=== PATIENT | female | born 1970 | race African-American/Black ===

== ENCOUNTER 2018-04-26 11:10 | Inpatient (IN) | payer MEDICAID ==
[~2018-04-26] VITALS: Ht 154.9 cm; Wt 71.2 kg
[2018-04-26] MEDS ORDERED: ALBUTEROL (0.083%) 2.5MG/3ML NEB HHN STA ×2 (11:40→12:33)
[2018-04-26 12:30] LABS: BASOPHILS % 0.6 % (0.0-2.0); EOSINOPHILS % 2.3 % (0.0-5.0); HEMATOCRIT. 33.2 % (36.0-48.0); HEMOGLOBIN. 10.2 g/dL (12.0-16.0); LYMPHOCYTES % 19.4 % (20.0-50.0); MEAN CORPUSCULAR HEMOGLOBIN 21.5 pg (28.0-32.0); MEAN CORPUSCULAR VOLUME 69.7 fL (81.0-99.0); MEAN PLATELET VOLUME 9.2 fl (7.4-10.4); NEUTROPHILS % 68.7 % (40.0-76.0); PLATELET 187 x1000/uL (130-400); RED BLOOD CELL COUNT 4.76 mill/uL (4.2-5.4); RED CELL DISTRIBUTION WIDTH 21.5 % (11.6-14.6)
[2018-04-26] MEDS ORDERED: FUROSEMIDE 40MG/4ML VIAL IVP ONE (12:30)
[2018-04-26 12:34] LABS: CHLORIDE 111 mEq/L (98-107)
[2018-04-26 12:57] LABS: PLATELET ESTIMATE NORMAL
[2018-04-26] MEDS ORDERED: ENALAPRIL 2.5MG/2ML VIAL 2ML IV ONE (13:30)
[2018-04-26 14:35] LABS: CLARITY URINE CLOUDY (CLEAR); COLOR URINE YELLOW (YELLOW); KETONES URINE NEGATIVE (NEGATIVE); LEUKOCYTE ESTERASE URINE TRACE (NEGATIVE); NITRITE URINE NEGATIVE (NEGATIVE); OCCULT BLOOD URINE NEGATIVE (NEGATIVE); PH URINE 6.5 (4.5-8.0); PROTEIN URINE 2+ (NEGATIVE); SPECIFIC GRAVITY URINE 1.012 (1.005-1.030)
[2018-04-26 14:53] LABS: BG BASE EXCESS -1.1 mmol/L (-2.0-2.0); BG CARBOXYHEMOGLOBIN 0.9 % (0.5-1.5); BG DEOXYHEMOGLOBIN 3.3 % (0.0-5.0); BG FRACTION INSPIRED OXYGEN 32; BG METHEMOGLOBIN 0.3 % (0.0-1.5); BG OXYGEN SATURATION 96.7 % (92.0-98.5); BG OXYHEMOGLOBIN 95.5 % (94.0-97.0); BG PCO2 35.9 mmHg (35.0-45.0); BG PH 7.424 (7.350-7.450); BG PO2 89.4 mmHg (75.0-100.0); BG SAMPLE SITE LEFT BRACHIAL; BG VENT MODE NASAL CANNULA
[2018-04-26 15:14] LABS: *AMPHETAMINES SCREEN URINE NEGATIVE (NEGATIVE); *BARBITURATES SCREEN URINE NEGATIVE (NEGATIVE)
[2018-04-26 15:15] LABS: *BENZODIAZEPINES SCREEN URINE NEGATIVE (NEGATIVE); CANNABINOID URINE SCREEN NEGATIVE (NEGATIVE); METHADONE URINE SCREEN NEGATIVE (NEGATIVE); OPIATES URINE SCREEN NEGATIVE (NEGATIVE); PHENCYCLIDINE URINE SCREEN NEGATIVE (NEGATIVE)
[2018-04-26 15:23] LABS: *COCAINE SCREEN URINE PRESUMTIVE POSITIVE (NEGATIVE)
[2018-04-26] MEDS ORDERED: HYDRALAZINE 20MG/ML VIAL IV NR (20:30)
[2018-04-26] MEDS ORDERED: CLOP75TA16 PO (22:52)
[2018-04-26] MEDS ORDERED: FERR325T6 PO (22:52)
[2018-04-26] MEDS ORDERED: FURO-151 PO (22:52)
[2018-04-26] MEDS ORDERED: AMLO5TAB4 PO (22:52)
[2018-04-26] MEDS ORDERED: APIX5TAB PO (22:52)
[2018-04-26] MEDS ORDERED: IPRATROPIUM/ALBUTEROL 0.5-3(2.5)MG/3ML NEB HHN PRN (23:00)
[2018-04-26] MEDS ORDERED: HYDRALAZINE 20MG/ML VIAL IV PRN (23:00)
[2018-04-26 23:34] VITALS: BP 158/105
[2018-04-26] MEDS: APIXABAN 5 MG TABLET PO SCH (23:43)
[2018-04-27] VITALS (8 sets, daily range): BP systolic 137–198; BP diastolic 74–114
[2018-04-27] MEDS: IPRATROPIUM/ALBUTEROL 0.5-3(2.5)MG/3ML NEB HHN SCH ×6 (00:07→20:50)
[2018-04-27] MEDS ORDERED: FUROSEMIDE 40MG/4ML VIAL IVP SCH ×2 (02:00→09:00)
[2018-04-27] MEDS: METHYLPREDNISOLONE SOD SUCC 40 MG/ML VIAL IV SCH ×3 (02:09→18:38)
[2018-04-27 07:18] LABS: HEMATOCRIT. 31.4 % (36.0-48.0); HEMOGLOBIN. 9.9 g/dL (12.0-16.0); MEAN CORPUSCULAR HEMOGLOBIN 21.6 pg (28.0-32.0); MEAN CORPUSCULAR VOLUME 68.8 fL (81.0-99.0); MEAN PLATELET VOLUME 8.7 fl (7.4-10.4); PLATELET 173 x1000/uL (130-400); RED BLOOD CELL COUNT 4.57 mill/uL (4.2-5.4); RED CELL DISTRIBUTION WIDTH 21.7 % (11.6-14.6)
[2018-04-27] MEDS: AMLODIPINE 5MG TABLET PO SCH ×2 (08:51→20:31)
[2018-04-27] MEDS: FERROUS SULFATE 325MG TABLET PO SCH (08:52)
[2018-04-27] MEDS: APIXABAN 5 MG TABLET PO SCH ×2 (08:52→16:03)
[2018-04-27] MEDS ORDERED: MEDICATION NOT ON FORMULARY EA (Apixaban (Eliquis) 5 MG) PO SCH (09:00)
[2018-04-27] MEDS ORDERED: MEDICATION NOT ON FORMULARY EA (Ferrous Sulfate 325 MG) PO SCH (09:00)
[2018-04-27] MEDS ORDERED: MEDICATION NOT ON FORMULARY EA (Amlodipine Besylate (Norvasc) 5 MG) PO SCH (09:00)
[2018-04-27] MEDS: CLONIDINE 0.1MG TABLET PO PRN (09:08)
[2018-04-27] MEDS: ONDANSETRON HCL 4MG/2ML INJ IV PRN (12:40)
[2018-04-27] MEDS: ISOSORB DINIT/HYDRALAZINE HCL 20/37.5MG TABLET PO SCH ×2 (15:58→20:31)
[2018-04-27] MEDS: FUROSEMIDE 40MG/4ML VIAL IVP SCH (16:01)
[2018-04-27] MEDS: LOSARTAN POTASSIUM 25 MG TABLET PO SCH (16:03)
[2018-04-27] MEDS: DIPHENHYDRAMINE 50MG CAPSULE PO SCH (20:31)
[2018-04-27] MEDS: GUAIFENESIN/CODEINE 200-20MG/10ML UDC PO PRN (20:31)
[2018-04-27 21:09] LABS: HEPATITIS B SURFACE ANTIGEN NEGATIVE
[2018-04-27] MEDS: ACETAMINOPHEN 325MG TABLET PO PRN (21:14)
[2018-04-27 21:26] LABS: PLATELET ESTIMATE NORMAL
[2018-04-27 21:38] LABS: HEPATITIS A AB IGM NEGATIVE (NEGATIVE)
[2018-04-28] MEDS: IPRATROPIUM/ALBUTEROL 0.5-3(2.5)MG/3ML NEB HHN SCH ×7 (00:05→23:58)
[2018-04-28] MEDS: GUAIFENESIN/CODEINE 200-20MG/10ML UDC PO PRN (01:21)
[2018-04-28] MEDS: METHYLPREDNISOLONE SOD SUCC 40 MG/ML VIAL IV SCH ×3 (01:22→17:10)
[2018-04-28] MEDS: ISOSORB DINIT/HYDRALAZINE HCL 20/37.5MG TABLET PO SCH (05:09)
[2018-04-28 07:23] LABS: HEMATOCRIT. 29.6 % (36.0-48.0); HEMOGLOBIN. 9.2 g/dL (12.0-16.0); MEAN CORPUSCULAR HEMOGLOBIN 21.4 pg (28.0-32.0); MEAN CORPUSCULAR VOLUME 68.8 fL (81.0-99.0); MEAN PLATELET VOLUME 8.7 fl (7.4-10.4); PLATELET 166 x1000/uL (130-400); RED BLOOD CELL COUNT 4.31 mill/uL (4.2-5.4); RED CELL DISTRIBUTION WIDTH 22.2 % (11.6-14.6)
[2018-04-28 08:00] VITALS: BP 125/90
[2018-04-28 08:48] LABS: PHOSPHORUS 3.4 mg/dL (2.5-4.9)
[2018-04-28] MEDS: APIXABAN 5 MG TABLET PO SCH ×2 (08:53→17:10)
[2018-04-28] MEDS: LOSARTAN POTASSIUM 25 MG TABLET PO SCH (08:53)
[2018-04-28] MEDS: FERROUS SULFATE 325MG TABLET PO SCH (08:53)
[2018-04-28] MEDS: AMLODIPINE 5MG TABLET PO SCH ×2 (08:54→21:28)
[2018-04-28] MEDS: FUROSEMIDE 40MG/4ML VIAL IVP SCH ×2 (08:54→17:10)
[2018-04-28 12:00] VITALS: BP 142/100
[2018-04-28 14:31] LABS: PLATELET ESTIMATE NORMAL
[2018-04-28 16:00] VITALS: BP 129/76
[2018-04-28 20:00] VITALS: BP 153/94
[2018-04-28] MEDS: DIPHENHYDRAMINE 50MG CAPSULE PO SCH (21:28)
[2018-04-28] MEDS ORDERED: GUAIFENESIN/CODEINE 100-10MG/5ML UDC PO PRN (21:45)
[2018-04-28 23:48] VITALS: BP 132/92
[2018-04-29] MEDS: METHYLPREDNISOLONE SOD SUCC 40 MG/ML VIAL IV SCH ×3 (01:55→17:07)
[2018-04-29] MEDS: ONDANSETRON HCL 4MG/2ML INJ IV PRN (01:55)
[2018-04-29] MEDS: IPRATROPIUM/ALBUTEROL 0.5-3(2.5)MG/3ML NEB HHN SCH ×3 (03:41→15:56)
[2018-04-29 04:00] VITALS: BP 140/101
[2018-04-29] MEDS: ACETAMINOPHEN 325MG TABLET PO PRN (05:16)
[2018-04-29] MEDS: CLONIDINE 0.1MG TABLET PO PRN (05:25)
[2018-04-29 07:35] LABS: HEMATOCRIT. 32.3 % (36.0-48.0); HEMOGLOBIN. 9.7 g/dL (12.0-16.0); MEAN CORPUSCULAR VOLUME 69.9 fL (81.0-99.0); MEAN PLATELET VOLUME 9.2 fl (7.4-10.4); PLATELET 184 x1000/uL (130-400); RED BLOOD CELL COUNT 4.62 mill/uL (4.2-5.4); RED CELL DISTRIBUTION WIDTH 22.3 % (11.6-14.6)
[2018-04-29] MEDS: FERROUS SULFATE 325MG TABLET PO SCH (09:02)
[2018-04-29] MEDS: APIXABAN 5 MG TABLET PO SCH ×2 (09:02→17:07)
[2018-04-29] MEDS: AMLODIPINE 5MG TABLET PO SCH (09:02)
[2018-04-29] MEDS: FUROSEMIDE 40MG/4ML VIAL IVP SCH (09:03)
[2018-04-29 10:38] LABS: PLATELET ESTIMATE NORMAL
[2018-04-29 11:25] LABS: PHOSPHORUS 3.7 mg/dL (2.5-4.9)
[2018-04-29 12:00] VITALS: BP 118/79
[2018-04-29 16:00] VITALS: BP 127/91
[2018-04-29] MEDS ORDERED: FUROSEMIDE 20MG/2ML VIAL IVP SCH (17:00)
[2018-04-29 19:34] VITALS: BP 120/88
== END 2018-04-29 20:20 | disposition home or self-care (01) | DRG 816 ==
LOC: ER 11:21 → EDBEDREQ 13:48 → EDBEDREQTM 13:48 → CANRESERV 15:25 → ENRESERV 15:25 → 5EST 16:53 → EDBEDREQ 16:57 → EDBEDREQTM 16:57 → EDBEDREQSVC 16:57 → ENRESERV 20:18 → 5EST 22:45 → 7WST 04-27 13:10
PROVIDERS: ADMIT Internal Medicine; ATTEND Internal Medicine
PROC: 5A09357 Assistance with Respiratory Ventilation, Less than 24 Consecutive Hours, Continuous Positive Airway Pressure (ICD-10-PCS; principal; 2018-04-27)
DX: T40.5X1A Poisoning by cocaine, accidental (unintentional), initial encounter (principal); J96.91 Respiratory failure, unspecified with hypoxia; I50.23 Acute on chronic systolic (congestive) heart failure; E43 Unspecified severe protein-calorie malnutrition; N17.9 Acute kidney failure, unspecified; I27.20 Pulmonary hypertension, unspecified; J68.0 Bronchitis and pneumonitis due to chemicals, gases, fumes and vapors; D50.9 Iron deficiency anemia, unspecified; F17.210 Nicotine dependence, cigarettes, uncomplicated; R74.0 Nonspecific elevation of levels of transaminase and lactic acid dehydrogenase [LDH]; F14.129 Cocaine abuse with intoxication, unspecified; I42.9 Cardiomyopathy, unspecified; I34.0 Nonrheumatic mitral (valve) insufficiency; F19.10 Other psychoactive substance abuse, uncomplicated; N18.2 Chronic kidney disease, stage 2 (mild); I13.0 Hypertensive heart and chronic kidney disease with heart failure and stage 1 through stage 4 chronic kidney disease, or unspecified chronic kidney disease; Y92.89 Other specified places as the place of occurrence of the external cause; Z59.0 Homelessness; Z86.73 Personal history of transient ischemic attack (TIA), and cerebral infarction without residual deficits; Z82.49 Family history of ischemic heart disease and other diseases of the circulatory system; Z86.718 Personal history of other venous thrombosis and embolism; Z91.14 Patient's other noncompliance with medication regimen; Z68.29 Body mass index [BMI] 29.0-29.9, adult; Z88.0 Allergy status to penicillin
CPT/HCPCS: 36415; 36600; 71045; 76770; 80048; 80305; 82375; 82550; 82553; 82805; 83605; 83735; 83880; 84100; 84484; 86705; 86709; 86803; 87340; 87804; 93005; 93306; 94640; 94660; 96374; 99285; J0360; J1940; J2405; J2920; J3490; J7611; J7620; Q0163

== ENCOUNTER 2018-06-21 09:17 | Inpatient (IN) | payer MEDICAID ==
[~2018-06-21] VITALS: Ht 162.6 cm; Wt 68.5 kg
[~2018-06-21 09:17] MED LIST: AMLO5TAB4 PO; CLOP75TA16 PO; FERR325T6 PO
[2018-06-21 10:50] LABS: BASOPHILS % 0.9 % (0.0-2.0); EOSINOPHILS % 1.2 % (0.0-5.0); HEMATOCRIT. 36.6 % (36.0-48.0); HEMOGLOBIN. 11.2 g/dL (12.0-16.0); LYMPHOCYTES % 15.2 % (20.0-50.0); MEAN CORPUSCULAR HEMOGLOBIN 22.8 pg (28.0-32.0); MEAN CORPUSCULAR VOLUME 74.2 fL (81.0-99.0); MEAN PLATELET VOLUME 8.4 fl (7.4-10.4); MONOCYTES % 4.9 % (2.0-8.0); NEUTROPHILS % 77.8 % (40.0-76.0); PLATELET 261 x1000/uL (130-400); RED BLOOD CELL COUNT 4.94 mill/uL (4.2-5.4); RED CELL DISTRIBUTION WIDTH 25.8 % (11.6-14.6)
[2018-06-21 10:55] LABS: CHLORIDE 107 mEq/L (98-107)
[2018-06-21 11:23] LABS: PLATELET ESTIMATE NORMAL
[2018-06-21] MEDS ORDERED: IPRATROPIUM BROMIDE (0.02%) 0.5MG/2.5ML NEB HHN STA (13:17)
[2018-06-21] MEDS ORDERED: ALBUTEROL (0.083%) 2.5MG/3ML NEB HHN STA (13:17)
[2018-06-21] MEDS ORDERED: HYDRALAZINE 20MG/ML VIAL IV ONE (13:30)
[2018-06-21] MEDS: FUROSEMIDE 40MG/4ML VIAL IV ONE ×2 (13:37→13:44)
[2018-06-21] MEDS ORDERED: CLONIDINE 0.1MG TABLET PO PRN (14:45)
[2018-06-21 16:00] VITALS: BP 143/110
[2018-06-21] MEDS ORDERED: DIPH25CA83 MT (16:24)
[2018-06-21 16:45] VITALS: BP 143/110
[2018-06-21 17:25] VITALS: BP 143/110
[2018-06-21] MEDS ORDERED: ZOLPIDEM TARTRATE 5MG TABLET PO PRN (18:45)
[2018-06-21] MEDS ORDERED: DIPHENHYDRAMINE 50MG CAPSULE PO PRN (18:45)
[2018-06-21] MEDS ORDERED: IPRATROPIUM/ALBUTEROL 0.5-3(2.5)MG/3ML NEB HHN PRN (19:30)
[2018-06-21 20:00] VITALS: BP 142/106
[2018-06-21] MEDS: CARVEDILOL 3.125 MG TABLET PO SCH (22:00)
[2018-06-21] MEDS: GUAIFENESIN 200MG/10ML SUGAR FREE UDC PO PRN (22:00)
[2018-06-21] MEDS: FUROSEMIDE 40MG/4ML VIAL IVP SCH (22:01)
[2018-06-21] MEDS: LEVOFLOXACIN 500MG TABLET PO NR (22:01)
[2018-06-21] MEDS: ENOXAPARIN 40MG/0.4ML SYR SUBCUT SCH (22:02)
[2018-06-22] VITALS: BP 131/85
[2018-06-22] MEDS: GUAIFENESIN 200MG/10ML SUGAR FREE UDC PO PRN ×2 (02:43→20:38)
[2018-06-22 04:00] VITALS: BP 123/83
[2018-06-22 06:44] LABS: BASOPHILS % 0.5 % (0.0-2.0); EOSINOPHILS % 1.9 % (0.0-5.0); HEMATOCRIT. 34.5 % (36.0-48.0); HEMOGLOBIN. 10.6 g/dL (12.0-16.0); LYMPHOCYTES % 11.5 % (20.0-50.0); MEAN CORPUSCULAR VOLUME 74.7 fL (81.0-99.0); MEAN PLATELET VOLUME 8.6 fl (7.4-10.4); MONOCYTES % 5.1 % (2.0-8.0); PLATELET 239 x1000/uL (130-400); RED BLOOD CELL COUNT 4.61 mill/uL (4.2-5.4); RED CELL DISTRIBUTION WIDTH 25.9 % (11.6-14.6)
[2018-06-22 08:00] VITALS: BP 159/92
[2018-06-22] MEDS: CLOPIDOGREL 75MG TABLET PO SCH (09:59)
[2018-06-22] MEDS: FUROSEMIDE 40MG/4ML VIAL IVP SCH ×2 (09:59→20:33)
[2018-06-22] MEDS: CARVEDILOL 3.125 MG TABLET PO SCH ×2 (10:00→20:34)
[2018-06-22] MEDS: LISINOPRIL 20MG TABLET PO SCH (10:00)
[2018-06-22] MEDS: AMLODIPINE 10MG TABLET PO SCH (10:01)
[2018-06-22] MEDS: ASPIRIN 81MG TABLET PO SCH (10:01)
[2018-06-22] MEDS: LEVOFLOXACIN 250MG TABLET PO SCH (10:27)
[2018-06-22 12:00] VITALS: BP 142/88
[2018-06-22 16:00] VITALS: BP 138/82
[2018-06-22] MEDS: NICOTINE 7MG PATCH TD SCH (17:36)
[2018-06-22 20:00] VITALS: BP 127/91
[2018-06-22] MEDS: CLONIDINE 0.1MG TABLET PO SCH (20:34)
[2018-06-22] MEDS: ENOXAPARIN 40MG/0.4ML SYR SUBCUT SCH (20:35)
[2018-06-22] MEDS: LEVOFLOXACIN 500MG TABLET PO NR (20:40)
[2018-06-23] VITALS: BP 123/72
[2018-06-23 04:00] VITALS: BP_SYST 108; BP_SYST 144; BP_DIAS 73; BP_DIAS 83
[2018-06-23] MEDS: CLONIDINE 0.1MG TABLET PO SCH (06:00)
[2018-06-23] MEDS: FUROSEMIDE 40MG/4ML VIAL IVP SCH (06:09)
[2018-06-23 08:00] VITALS: BP 141/96
[2018-06-23 08:36] LABS: BASOPHILS % 0.7 % (0.0-2.0); EOSINOPHILS % 3.2 % (0.0-5.0); HEMATOCRIT. 37.4 % (36.0-48.0); HEMOGLOBIN. 11.4 g/dL (12.0-16.0); LYMPHOCYTES % 17.8 % (20.0-50.0); MEAN CORPUSCULAR HEMOGLOBIN 22.8 pg (28.0-32.0); MEAN CORPUSCULAR VOLUME 74.8 fL (81.0-99.0); MEAN PLATELET VOLUME 8.8 fl (7.4-10.4); MONOCYTES % 7.9 % (2.0-8.0); NEUTROPHILS % 70.4 % (40.0-76.0); PLATELET 231 x1000/uL (130-400); RED BLOOD CELL COUNT 5.01 mill/uL (4.2-5.4); RED CELL DISTRIBUTION WIDTH 26.6 % (11.6-14.6)
[2018-06-23] MEDS: ASPIRIN 81MG TABLET PO SCH (08:51)
[2018-06-23] MEDS: CARVEDILOL 3.125 MG TABLET PO SCH (08:51)
[2018-06-23] MEDS: CLOPIDOGREL 75MG TABLET PO SCH (08:51)
[2018-06-23] MEDS: NICOTINE 7MG PATCH TD SCH (08:52)
[2018-06-23] MEDS: AMLODIPINE 10MG TABLET PO SCH (08:52)
[2018-06-23] MEDS: LISINOPRIL 20MG TABLET PO SCH (08:52)
[2018-06-23 12:00] VITALS: BP 127/88
[2018-06-23] MEDS: LEVOFLOXACIN 250MG TABLET PO SCH (13:15)
[2018-06-23 15:23] LABS: *AMPHETAMINES SCREEN URINE NEGATIVE (NEGATIVE); *BARBITURATES SCREEN URINE NEGATIVE (NEGATIVE); *BENZODIAZEPINES SCREEN URINE NEGATIVE (NEGATIVE); METHADONE URINE SCREEN NEGATIVE (NEGATIVE); OPIATES URINE SCREEN NEGATIVE (NEGATIVE)
[2018-06-23 15:24] LABS: CANNABINOID URINE SCREEN NEGATIVE (NEGATIVE); PHENCYCLIDINE URINE SCREEN NEGATIVE (NEGATIVE)
[2018-06-23 15:53] LABS: *COCAINE SCREEN URINE PRESUMTIVE POSITIVE (NEGATIVE)
== END 2018-06-23 13:58 | disposition home or self-care (01) | DRG 194 ==
LOC: ER 09:17 → 7WST 13:35 → ENRESERV 14:01
PROVIDERS: ADMIT Internal Medicine; ATTEND Internal Medicine
DX: I13.0 Hypertensive heart and chronic kidney disease with heart failure and stage 1 through stage 4 chronic kidney disease, or unspecified chronic kidney disease (principal); I27.20 Pulmonary hypertension, unspecified; E44.0 Moderate protein-calorie malnutrition; I42.9 Cardiomyopathy, unspecified; I08.1 Rheumatic disorders of both mitral and tricuspid valves; I50.43 Acute on chronic combined systolic (congestive) and diastolic (congestive) heart failure; N18.3 Chronic kidney disease, stage 3 (moderate); F14.90 Cocaine use, unspecified, uncomplicated; F17.210 Nicotine dependence, cigarettes, uncomplicated; J45.909 Unspecified asthma, uncomplicated; I25.10 Atherosclerotic heart disease of native coronary artery without angina pectoris; J44.9 Chronic obstructive pulmonary disease, unspecified; Z59.0 Homelessness; Z86.73 Personal history of transient ischemic attack (TIA), and cerebral infarction without residual deficits; Z91.19 Patient's noncompliance with other medical treatment and regimen; Z95.5 Presence of coronary angioplasty implant and graft; Z68.29 Body mass index [BMI] 29.0-29.9, adult; Z71.6 Tobacco abuse counseling
CPT/HCPCS: 36415; 71045; 80048; 80305; 83735; 83880; 84484; 93005; 93970; 94640; 96374; 96375; 99285; J0360; J1650; J1940; J7611

== ENCOUNTER 2018-11-21 11:33 | Inpatient (IN) | payer MEDICAID ==
[~2018-11-21] VITALS: Ht 162.6 cm; Wt 57.6 kg
[~2018-11-21 11:33] MED LIST changes: -CLOP75TA16 PO; +CLOP75TA4 PO; +DIPH25CA83 MT
[2018-11-21] MEDS ORDERED: PREDNISONE 20MG TABLET PO STA (11:45)
[2018-11-21] MEDS ORDERED: ALBUTEROL (0.083%) 2.5MG/3ML NEB HHN STA (11:45)
[2018-11-21] MEDS ORDERED: IPRATROPIUM BROMIDE (0.02%) 0.5MG/2.5ML NEB HHN STA (11:45)
[2018-11-21 12:21] LABS: BASOPHILS % 0.7 % (0.0-2.0); EOSINOPHILS % 0.9 % (0.0-5.0); HEMOGLOBIN. 11.6 g/dL (12.0-16.0); LYMPHOCYTES % 15.1 % (20.0-50.0); MEAN CORPUSCULAR HEMOGLOBIN 24.9 pg (28.0-32.0); MEAN CORPUSCULAR VOLUME 79.5 fL (81.0-99.0); MEAN PLATELET VOLUME 8.6 fl (7.4-10.4); MONOCYTES % 4.5 % (2.0-8.0); NEUTROPHILS % 78.8 % (40.0-76.0); PLATELET 267 x1000/uL (130-400); RED BLOOD CELL COUNT 4.66 mill/uL (4.2-5.4); RED CELL DISTRIBUTION WIDTH 18.3 % (11.6-14.6)
[2018-11-21 12:26] LABS: CHLORIDE 111 mEq/L (98-107)
[2018-11-21] MEDS ORDERED: ENALAPRIL 2.5MG/2ML VIAL 2ML IV ONE (13:00)
[2018-11-21] MEDS ORDERED: FUROSEMIDE 40MG/4ML VIAL IVP ONE (13:00)
[2018-11-21 16:00] VITALS: BP 160/124
[2018-11-21 16:20] VITALS: BP 185/75
[2018-11-21] MEDS ORDERED: ENOXAPARIN 40MG/0.4ML SYR SUBCUT SCH (16:45)
[2018-11-21] MEDS ORDERED: DOCUSATE SODIUM 100MG CAPSULE PO PRN (16:45)
[2018-11-21] MEDS ORDERED: MAGNESIUM/ALUMINUM HYDROXIDE/SIMETHICONE 30ML UDC PO PRN (16:45)
[2018-11-21] MEDS ORDERED: HYDRALAZINE 20MG/ML VIAL IV PRN (16:45)
[2018-11-21] MEDS ORDERED: NA PHOS,M-B/NA PHOS,DI-BA ENEMA 118ML PR PRN (16:45)
[2018-11-21] MEDS ORDERED: HYDROCODONE/ACETAMINOPHEN 10/325MG TABLET PO PRN (16:45)
[2018-11-21] MEDS ORDERED: ACETAMINOPHEN 325MG TABLET PO PRN (16:45)
[2018-11-21] MEDS ORDERED: DIPHENHYDRAMINE 50MG/ML VIAL IV PRN (16:45)
[2018-11-21] MEDS ORDERED: IPRATROPIUM/ALBUTEROL 0.5-3(2.5)MG/3ML NEB INH PRN (16:45)
[2018-11-21] MEDS ORDERED: HYDROMORPHONE HCL/PF 2MG/ML CPJ IV PRN (16:45)
[2018-11-21] MEDS: CLOPIDOGREL 75MG TABLET PO SCH (17:29)
[2018-11-21] MEDS: METHYLPREDNISOLONE SOD SUCC 125 MG/2 ML VIAL IV SCH ×2 (17:29→23:48)
[2018-11-21] MEDS: GUAIFENESIN 200MG/10ML SUGAR FREE UDC PO PRN (17:45)
[2018-11-21 19:36] LABS: *AMPHETAMINES SCREEN URINE NEGATIVE (NEGATIVE); *BARBITURATES SCREEN URINE NEGATIVE (NEGATIVE); *BENZODIAZEPINES SCREEN URINE NEGATIVE (NEGATIVE); CANNABINOID URINE SCREEN NEGATIVE (NEGATIVE); METHADONE URINE SCREEN NEGATIVE (NEGATIVE); OPIATES URINE SCREEN NEGATIVE (NEGATIVE)
[2018-11-21 19:37] LABS: PHENCYCLIDINE URINE SCREEN NEGATIVE (NEGATIVE)
[2018-11-21 19:40] LABS: *COCAINE SCREEN URINE PRESUMTIVE POSITIVE (NEGATIVE)
[2018-11-21 20:00] VITALS: BP 150/90
[2018-11-21] MEDS: IPRATROPIUM/ALBUTEROL 0.5-3(2.5)MG/3ML NEB INH SCH (20:33)
[2018-11-21] MEDS: SODIUM CHLORIDE 0.9% INJ 3ML FLUSH IVF SCH (21:53)
[2018-11-21 22:00] VITALS: BP 150/87
[2018-11-21] MEDS: LORAZEPAM 2MG/ML CPJ IV PRN (22:06)
[2018-11-21] MEDS: ONDANSETRON HCL 4MG/2ML INJ IV PRN (23:31)
[2018-11-22] VITALS (9 sets, daily range): BP systolic 146–180; BP diastolic 89–140
[2018-11-22 00:48] LABS: CREATINE KINASE MB FRACTION 5.4 ng/mL (0.5-3.6)
[2018-11-22] MEDS: IPRATROPIUM/ALBUTEROL 0.5-3(2.5)MG/3ML NEB INH SCH ×7 (01:20→23:35)
[2018-11-22] MEDS: CLONIDINE 0.1MG TABLET PO PRN ×3 (02:13→21:11)
[2018-11-22] MEDS: METHYLPREDNISOLONE SOD SUCC 125 MG/2 ML VIAL IV SCH ×3 (05:54→17:42)
[2018-11-22 06:57] LABS: CHLORIDE 105 mEq/L (98-107)
[2018-11-22 07:10] LABS: LDL CHOLESTEROL 87 mg/dL (5-100)
[2018-11-22 07:11] LABS: CREATINE KINASE 120 IU/L (26-192); HEMATOCRIT. 32.5 % (36.0-48.0); HEMOGLOBIN. 10.5 g/dL (12.0-16.0); MEAN CORPUSCULAR HEMOGLOBIN 25.3 pg (28.0-32.0); MEAN CORPUSCULAR VOLUME 78.2 fL (81.0-99.0); MEAN PLATELET VOLUME 8.8 fl (7.4-10.4); PLATELET 239 x1000/uL (130-400); RED BLOOD CELL COUNT 4.15 mill/uL (4.2-5.4); RED CELL DISTRIBUTION WIDTH 18.1 % (11.6-14.6)
[2018-11-22 07:12] LABS: HDL CHOLESTEROL 30 mg/dL (40-59); T4 FREE 1.13 ng/dL (0.76-1.46)
[2018-11-22] MEDS ORDERED: ASPIRIN 81MG EC TABLET PO SCH (09:00)
[2018-11-22] MEDS: CLOPIDOGREL 75MG TABLET PO SCH (10:15)
[2018-11-22] MEDS: FUROSEMIDE 40MG/4ML VIAL IVP SCH (10:15)
[2018-11-22] MEDS: ENOXAPARIN 40MG/0.4ML SYR SUBCUT SCH (10:18)
[2018-11-22] MEDS: ONDANSETRON HCL 4MG/2ML INJ IV PRN (10:36)
[2018-11-22] MEDS: GUAIFENESIN 200MG/10ML SUGAR FREE UDC PO PRN ×2 (12:32→22:25)
[2018-11-22] MEDS: NICOTINE 21MG PATCH TD SCH (17:43)
[2018-11-22 18:07] LABS: CREATINE KINASE MB FRACTION 4.7 ng/mL (0.5-3.6)
[2018-11-22] MEDS: SODIUM CHLORIDE 0.9% INJ 3ML FLUSH IVF SCH (20:13)
[2018-11-22 21:01] LABS: PLATELET ESTIMATE NORMAL
[2018-11-22] MEDS: IRON SUCROSE COMPLEX 100 MG/5 ML ML IV SCH (21:08)
[2018-11-22] MEDS: LORAZEPAM 2MG/ML CPJ IV PRN (21:09)
[2018-11-23] VITALS (7 sets, daily range): BP systolic 144–157; BP diastolic 86–118
[2018-11-23] MEDS: METHYLPREDNISOLONE SOD SUCC 125 MG/2 ML VIAL IV SCH ×4 (00:16→17:47)
[2018-11-23 00:35] LABS: CREATINE KINASE MB FRACTION 4.5 ng/mL (0.5-3.6)
[2018-11-23] MEDS: IPRATROPIUM/ALBUTEROL 0.5-3(2.5)MG/3ML NEB INH SCH ×4 (03:56→21:09)
[2018-11-23] MEDS: ONDANSETRON HCL 4MG/2ML INJ IV PRN (05:37)
[2018-11-23] MEDS: SODIUM CHLORIDE 0.9% INJ 3ML FLUSH IVF SCH ×3 (05:38→20:53)
[2018-11-23 07:51] LABS: CREATINE KINASE MB FRACTION 4.3 ng/mL (0.5-3.6)
[2018-11-23] MEDS: LOSARTAN POTASSIUM 50 MG TABLET PO SCH ×2 (08:36→09:00)
[2018-11-23] MEDS: FUROSEMIDE 40MG/4ML VIAL IVP SCH (08:36)
[2018-11-23] MEDS: NICOTINE 21MG PATCH TD SCH (08:36)
[2018-11-23] MEDS: CLOPIDOGREL 75MG TABLET PO SCH (08:36)
[2018-11-23] MEDS: ENOXAPARIN 40MG/0.4ML SYR SUBCUT SCH (08:36)
[2018-11-23] MEDS: CARVEDILOL 3.125 MG TABLET PO SCH ×2 (08:36→20:53)
[2018-11-23 10:12] LABS: HEMATOCRIT. 32.1 % (36.0-48.0); HEMOGLOBIN. 10.1 g/dL (12.0-16.0); MEAN CORPUSCULAR HEMOGLOBIN 24.7 pg (28.0-32.0); MEAN CORPUSCULAR VOLUME 78.3 fL (81.0-99.0); MEAN PLATELET VOLUME 8.8 fl (7.4-10.4); PLATELET 239 x1000/uL (130-400); RED CELL DISTRIBUTION WIDTH 18.1 % (11.6-14.6)
[2018-11-23] MEDS ORDERED: LACTULOSE 20G/30ML UDC PO SCH (14:15)
[2018-11-23] MEDS: DOCUSATE SODIUM 250MG CAPSULE PO SCH (18:02)
[2018-11-23] MEDS: GUAIFENESIN 200MG/10ML SUGAR FREE UDC PO PRN (18:06)
[2018-11-23 20:46] LABS: PLATELET ESTIMATE NORMAL
[2018-11-23] MEDS: IRON SUCROSE COMPLEX 100 MG/5 ML ML IV SCH (20:53)
[2018-11-23] MEDS: LORAZEPAM 2MG/ML CPJ IV PRN (21:03)
[2018-11-24] VITALS: BP 144/98
[2018-11-24] MEDS: METHYLPREDNISOLONE SOD SUCC 125 MG/2 ML VIAL IV SCH ×3 (00:50→12:08)
[2018-11-24 04:00] VITALS: BP 145/99
[2018-11-24] MEDS: IPRATROPIUM/ALBUTEROL 0.5-3(2.5)MG/3ML NEB INH SCH ×3 (05:20→08:45)
[2018-11-24] MEDS: SODIUM CHLORIDE 0.9% INJ 3ML FLUSH IVF SCH ×2 (05:47→12:19)
[2018-11-24 07:22] LABS: HEMATOCRIT. 34.3 % (36.0-48.0); HEMOGLOBIN. 10.8 g/dL (12.0-16.0); MEAN CORPUSCULAR HEMOGLOBIN 24.9 pg (28.0-32.0); MEAN CORPUSCULAR VOLUME 79.1 fL (81.0-99.0); MEAN PLATELET VOLUME 9.1 fl (7.4-10.4); PLATELET 247 x1000/uL (130-400); RED BLOOD CELL COUNT 4.34 mill/uL (4.2-5.4); RED CELL DISTRIBUTION WIDTH 18.2 % (11.6-14.6)
[2018-11-24 08:03] VITALS: BP 114/80
[2018-11-24] MEDS: CLOPIDOGREL 75MG TABLET PO SCH (09:07)
[2018-11-24] MEDS: ENOXAPARIN 40MG/0.4ML SYR SUBCUT SCH (09:07)
[2018-11-24] MEDS: FUROSEMIDE 40MG/4ML VIAL IVP SCH (09:07)
[2018-11-24] MEDS: CARVEDILOL 3.125 MG TABLET PO SCH (09:08)
[2018-11-24] MEDS: LOSARTAN POTASSIUM 50 MG TABLET PO SCH (09:08)
[2018-11-24] MEDS: NICOTINE 21MG PATCH TD SCH (09:08)
[2018-11-24] MEDS: DOCUSATE SODIUM 250MG CAPSULE PO SCH (09:08)
[2018-11-24 09:43] LABS: NUCLEATED RED BLOOD CELLS 1 /100 WBC; PLATELET ESTIMATE NORMAL
[2018-11-24 10:20] VITALS: BP 127/85
[2018-11-24 12:00] VITALS: BP 127/85
== END 2018-11-24 15:15 | disposition home or self-care (01) | DRG 816 ==
LOC: ER 11:33 → ENRESERV 13:52 → 7WST 14:34
PROVIDERS: ADMIT Internal Medicine; ATTEND Internal Medicine
DX: T40.5X1A Poisoning by cocaine, accidental (unintentional), initial encounter (principal); J96.00 Acute respiratory failure, unspecified whether with hypoxia or hypercapnia; N17.0 Acute kidney failure with tubular necrosis; E44.0 Moderate protein-calorie malnutrition; I50.43 Acute on chronic combined systolic (congestive) and diastolic (congestive) heart failure; D50.9 Iron deficiency anemia, unspecified; F14.10 Cocaine abuse, uncomplicated; I08.1 Rheumatic disorders of both mitral and tricuspid valves; F17.210 Nicotine dependence, cigarettes, uncomplicated; R74.8 Abnormal levels of other serum enzymes; E78.5 Hyperlipidemia, unspecified; I25.10 Atherosclerotic heart disease of native coronary artery without angina pectoris; I42.9 Cardiomyopathy, unspecified; J68.0 Bronchitis and pneumonitis due to chemicals, gases, fumes and vapors; N18.9 Chronic kidney disease, unspecified; I13.0 Hypertensive heart and chronic kidney disease with heart failure and stage 1 through stage 4 chronic kidney disease, or unspecified chronic kidney disease; Z86.718 Personal history of other venous thrombosis and embolism; I25.2 Old myocardial infarction; Z86.73 Personal history of transient ischemic attack (TIA), and cerebral infarction without residual deficits; Z88.0 Allergy status to penicillin; Z59.0 Homelessness; Z79.899 Other long term (current) drug therapy; Z79.02 Long term (current) use of antithrombotics/antiplatelets; Y92.89 Other specified places as the place of occurrence of the external cause; Z68.21 Body mass index [BMI] 21.0-21.9, adult
CPT/HCPCS: 36415; 71045; 78582; 80048; 80061; 80305; 82550; 82553; 83036; 83880; 84439; 84443; 84484; 85379; 93005; 93306; 93970; 94640; 96374; 96375; 99285; A9558; J1650; J1940; J2060; J2405; J2930; J3490; J7512; J7611; J7620

== ENCOUNTER 2020-07-09 12:40 | Inpatient (IN) | payer MEDICAID ==
[~2020-07-09] VITALS: Ht 162.6 cm; Wt 74.8 kg
[~2020-07-09 12:40] MED LIST changes: +CLOP-31 PO; -CLOP75TA4 PO; -DIPH25CA83 MT
[2020-07-09] MEDS ORDERED: FUROSEMIDE 40MG/4ML VIAL IVP ONE (13:30)
[2020-07-09 14:08] LABS: BASOPHILS % 0.8 % (0.0-2.0); EOSINOPHILS % 1.1 % (0.0-5.0); HEMATOCRIT. 35.2 % (36.0-48.0); HEMOGLOBIN. 11.1 g/dL (12.0-16.0); LYMPHOCYTES % 21.2 % (20.0-50.0); MEAN CORPUSCULAR HEMOGLOBIN 22.8 pg (28.0-32.0); MEAN PLATELET VOLUME 8.8 fl (7.4-10.4); MONOCYTES % 7.3 % (2.0-8.0); NEUTROPHILS % 69.6 % (40.0-76.0); PLATELET 250 x1000/uL (130-400); RED BLOOD CELL COUNT 4.89 mill/uL (4.2-5.4); RED CELL DISTRIBUTION WIDTH 18.9 % (11.6-14.6)
[2020-07-09 14:14] LABS: CHLORIDE 107 mEq/L (98-107)
[2020-07-09 14:28] LABS: CLARITY URINE CLEAR (CLEAR); COLOR URINE YELLOW (YELLOW); KETONES URINE NEGATIVE (NEGATIVE); LEUKOCYTE ESTERASE URINE 2+ (NEGATIVE); NITRITE URINE NEGATIVE (NEGATIVE); OCCULT BLOOD URINE TRACE (NEGATIVE); PROTEIN URINE 3+ (NEGATIVE); SPECIFIC GRAVITY URINE 1.019 (1.005-1.030)
[2020-07-09] MEDS ORDERED: DEXTROSE 50% WATER 50ML SYRINGE IV ONE (16:30)
[2020-07-09] MEDS ORDERED: CEFTRIAXONE 1 G PREMIX 50 ML IV ONE (16:30)
[2020-07-09] MEDS ORDERED: SODIUM CHLORIDE 0.9% 100 ML IV ONE (16:30)
[2020-07-09] MEDS ORDERED: INSULIN REGULAR (HUMULIN R) 300UNITS/3ML VIAL IV ONE (16:30)
[2020-07-09] MEDS ORDERED: FUROSEMIDE 20MG/2ML VIAL IVP ONE (16:30)
[2020-07-09] MEDS ORDERED: CALCIUM GLUCONATE 100MG/ML 10ML VIAL IV ONE (16:30)
[2020-07-09] MEDS ORDERED: MORPHINE SULFATE 2 MG/ML CPJ (NOT FOR IM USE) IV PRN (21:00)
[2020-07-09] MEDS: AMLODIPINE 10MG TABLET PO SCH (22:11)
[2020-07-09] MEDS: CLONIDINE 0.1MG TABLET PO PRN (22:11)
[2020-07-09] MEDS ORDERED: ACETAMINOPHEN 325MG TABLET PO PRN (23:45)
[2020-07-09] MEDS ORDERED: ONDANSETRON HCL 4MG/2ML INJ IV PRN (23:45)
[2020-07-09] MEDS ORDERED: SODIUM POLYSTYRENE SULFONATE 15 G/60 ML BOT PO NR (23:45)
[2020-07-09] MEDS ORDERED: HYDRALAZINE HCL 50MG TABLET PO NR (23:45)
[2020-07-10] MEDS: FUROSEMIDE 40MG/4ML VIAL IVP SCH ×3 (01:45→17:50)
[2020-07-10] MEDS: CLONIDINE 0.1MG TABLET PO PRN ×2 (05:50→11:58)
[2020-07-10] MEDS: AMLODIPINE 10MG TABLET PO SCH (09:00)
[2020-07-10 09:01] LABS: *AMPHETAMINES SCREEN URINE NEGATIVE (NEGATIVE); *BARBITURATES SCREEN URINE NEGATIVE (NEGATIVE); *BENZODIAZEPINES SCREEN URINE NEGATIVE (NEGATIVE); *COCAINE SCREEN URINE PRESUMTIVE POSITIVE (NEGATIVE)
[2020-07-10 09:02] LABS: CANNABINOID URINE SCREEN NEGATIVE (NEGATIVE); METHADONE URINE SCREEN NEGATIVE (NEGATIVE); OPIATES URINE SCREEN NEGATIVE (NEGATIVE); PHENCYCLIDINE URINE SCREEN NEGATIVE (NEGATIVE)
[2020-07-10] MEDS: HYDRALAZINE HCL 50MG TABLET PO SCH ×2 (09:17→21:46)
[2020-07-10 16:18] VITALS: BP 152/115
[2020-07-10 20:00] VITALS: BP 130/95
[2020-07-10] MEDS: TRAMADOL 50MG TABLET PO PRN (21:48)
[2020-07-10] MEDS: ENOXAPARIN 40MG/0.4ML SYR SUBCUT SCH (21:49)
[2020-07-11] VITALS (7 sets, daily range): BP systolic 130–162; BP diastolic 91–113
[2020-07-11] MEDS: FUROSEMIDE 40MG/4ML VIAL IVP SCH ×2 (09:00→16:39)
[2020-07-11] MEDS: HYDRALAZINE HCL 50MG TABLET PO SCH (10:41)
[2020-07-11] MEDS: AMLODIPINE 10MG TABLET PO SCH (10:42)
[2020-07-11] MEDS: IPRATROPIUM/ALBUTEROL 0.5-3(2.5)MG/3ML NEB HHN PRN ×2 (13:51→21:36)
[2020-07-11] MEDS: CLONIDINE 0.1MG TABLET PO PRN (16:39)
[2020-07-11] MEDS: TRAMADOL 50MG TABLET PO PRN (17:48)
[2020-07-11] MEDS: HYDRALAZINE HCL 100MG TABLET PO SCH (21:24)
[2020-07-11] MEDS: ENOXAPARIN 40MG/0.4ML SYR SUBCUT SCH (21:24)
[2020-07-12] VITALS: BP 125/79
[2020-07-12 08:00] VITALS: BP 139/94
[2020-07-12] MEDS: HYDRALAZINE HCL 100MG TABLET PO SCH ×2 (09:00→21:34)
[2020-07-12] MEDS: FUROSEMIDE 40MG/4ML VIAL IVP SCH ×2 (09:00→16:03)
[2020-07-12] MEDS: AMLODIPINE 10MG TABLET PO SCH (09:00)
[2020-07-12 12:00] VITALS: BP 146/107
[2020-07-12] MEDS: TRAMADOL 50MG TABLET PO PRN (12:31)
[2020-07-12] MEDS: CLONIDINE 0.1MG TABLET PO PRN ×2 (16:03→21:36)
[2020-07-12 16:08] VITALS: BP 140/110
[2020-07-12 20:00] VITALS: BP 152/110
[2020-07-12] MEDS ORDERED: LOSA100T32 MT (20:34)
[2020-07-12] MEDS ORDERED: ALBU18HF2 IH (20:34)
[2020-07-12] MEDS ORDERED: AMLO5TAB4 PO (20:34)
[2020-07-12] MEDS ORDERED: IPRA3AMP9 NEB (20:34)
[2020-07-12] MEDS ORDERED: CARV12.545 MT (20:34)
[2020-07-12] MEDS ORDERED: FLUT1DIS3 INH (20:34)
[2020-07-12] MEDS ORDERED: FURO-151 MT (20:34)
[2020-07-12] MEDS: ENOXAPARIN 40MG/0.4ML SYR SUBCUT SCH (21:36)
[2020-07-13] VITALS: BP 113/87
[2020-07-13 04:00] VITALS: BP_SYST 105; BP_SYST 148; BP_DIAS 107; BP_DIAS 79
[2020-07-13 08:00] VITALS: BP 137/85
[2020-07-13] MEDS: FUROSEMIDE 40MG/4ML VIAL IVP SCH (08:35)
[2020-07-13] MEDS: AMLODIPINE 10MG TABLET PO SCH (08:36)
[2020-07-13] MEDS: HYDRALAZINE HCL 100MG TABLET PO SCH (08:36)
[2020-07-13 11:26] VITALS: BP 134/68
== END 2020-07-13 14:05 | disposition home or self-care (01) | DRG 194 ==
LOC: ER 12:40 → MICUSO 16:48 → 6WST 07-10 15:32
PROVIDERS: ADMIT Internal Medicine; ATTEND Internal Medicine
DX: I13.0 Hypertensive heart and chronic kidney disease with heart failure and stage 1 through stage 4 chronic kidney disease, or unspecified chronic kidney disease (principal); I50.23 Acute on chronic systolic (congestive) heart failure; N17.9 Acute kidney failure, unspecified; E44.0 Moderate protein-calorie malnutrition; I42.9 Cardiomyopathy, unspecified; J44.9 Chronic obstructive pulmonary disease, unspecified; E87.1 Hypo-osmolality and hyponatremia; E87.5 Hyperkalemia; F14.90 Cocaine use, unspecified, uncomplicated; N18.9 Chronic kidney disease, unspecified; D63.8 Anemia in other chronic diseases classified elsewhere; R77.8 Other specified abnormalities of plasma proteins; E87.2 Acidosis; Z20.822 Contact with and (suspected) exposure to COVID-19; I34.0 Nonrheumatic mitral (valve) insufficiency; F17.210 Nicotine dependence, cigarettes, uncomplicated; I16.0 Hypertensive urgency; I27.20 Pulmonary hypertension, unspecified; Z91.14 Patient's other noncompliance with medication regimen; Z86.73 Personal history of transient ischemic attack (TIA), and cerebral infarction without residual deficits; Z68.28 Body mass index [BMI] 28.0-28.9, adult; Z88.0 Allergy status to penicillin; Z71.51 Drug abuse counseling and surveillance of drug abuser
CPT/HCPCS: 36415; 71045; 80048; 80053; 80305; 81003; 82962; 83605; 83880; 84484; 85025; 93005; 93306; 99285; J0610; J0696; J1650; J1815; J1940; J2270; J7050; U0003

== ENCOUNTER 2020-09-15 10:35 | Inpatient (IN) | payer MEDICAID ==
[~2020-09-15] VITALS: Ht 165.1 cm; Wt 72.1 kg
[~2020-09-15 10:35] MED LIST changes: +ALBU18HF2 IH; +CARV12.545 MT; +FLUT1DIS3 INH; +FURO-151 MT; +IPRA3AMP9 NEB; +LOSA100T32 MT
[2020-09-15] MEDS ORDERED: MORPHINE SULFATE 4 MG/ML CPJ (NOT FOR IM USE) IV ONE (11:15)
[2020-09-15] MEDS ORDERED: NITROGLYCERIN 50MG PREMIX 250 ML IV ONE ×2 (11:15→16:45)
[2020-09-15] MEDS ORDERED: NITROGLYCERIN 0.4MG TABLET SL SL ONE (11:15)
[2020-09-15] MEDS ORDERED: FUROSEMIDE 100MG/10ML VIAL IVP ONE (11:15)
[2020-09-15 11:29] LABS: BASOPHILS % 0.5 % (0.0-2.0); EOSINOPHILS % 0.3 % (0.0-5.0); HEMATOCRIT. 37.8 % (36.0-48.0); HEMOGLOBIN. 11.4 g/dL (12.0-16.0); LYMPHOCYTES % 16.2 % (20.0-50.0); MEAN CORPUSCULAR HEMOGLOBIN 21.7 pg (28.0-32.0); MEAN CORPUSCULAR VOLUME 72.2 fL (81.0-99.0); MEAN PLATELET VOLUME 9.5 fl (7.4-10.4); MONOCYTES % 8.1 % (2.0-8.0); NEUTROPHILS % 74.9 % (40.0-76.0); PLATELET 226 x1000/uL (130-400); RED BLOOD CELL COUNT 5.23 mill/uL (4.2-5.4); RED CELL DISTRIBUTION WIDTH 21.8 % (11.6-14.6)
[2020-09-15] MEDS ORDERED: LEVOFLOXACIN 750MG PREMIX 150 ML IV ONE (11:30)
[2020-09-15] MEDS ORDERED: VANCOMYCIN 750 MG PREMIX 150 ML IV SCH (11:30)
[2020-09-15 11:35] LABS: CHLORIDE 103 mEq/L (98-107)
[2020-09-15] MEDS ORDERED: HYDRALAZINE 20MG/ML VIAL IV ONE (16:00)
[2020-09-15] MEDS ORDERED: DEXT 5%/0.45% NACL 1000ML 1,000 ML IV SCH (19:00)
[2020-09-15] MEDS ORDERED: DIPHENHYDRAMINE 50MG/ML VIAL IV PRN (19:00)
[2020-09-15] MEDS ORDERED: IPRATROPIUM/ALBUTEROL 0.5-3(2.5)MG/3ML NEB HHN PRN (19:00)
[2020-09-15] MEDS ORDERED: NICARDIPINE 40MG/200ML PREMIX 200 ML IV PRN (19:00)
[2020-09-15] MEDS ORDERED: MORPHINE SULFATE 2 MG/ML CPJ (NOT FOR IM USE) IV PRN (19:00)
[2020-09-15] MEDS ORDERED: CLONIDINE 0.1MG TABLET PO PRN (19:00)
[2020-09-15] MEDS ORDERED: HYDRALAZINE 20MG/ML VIAL IV PRN (19:00)
[2020-09-15] MEDS ORDERED: MAGNESIUM/ALUMINUM HYDROXIDE/SIMETHICONE 30ML UDC PO PRN (19:00)
[2020-09-15] MEDS ORDERED: DOCUSATE SODIUM 100MG CAPSULE PO PRN (19:00)
[2020-09-15] MEDS ORDERED: ACETAMINOPHEN 325MG TABLET PO PRN (19:00)
[2020-09-15] MEDS ORDERED: HYDROCODONE/ACETAMINOPHEN 5/325MG TABLET PO PRN (19:00)
[2020-09-15] MEDS ORDERED: GUAIFENESIN 200MG/10ML SUGAR FREE UDC PO PRN (19:00)
[2020-09-15] MEDS ORDERED: ONDANSETRON HCL 4MG/2ML INJ IV PRN (19:00)
[2020-09-15 19:44] LABS: BG BASE EXCESS 0.5 mmol/L (-2.0-2.0); BG CARBOXYHEMOGLOBIN 0.9 % (0.5-1.5); BG FRACTION INSPIRED OXYGEN 35; BG HCO3 ACT 24.7 mmol/L (22.0-26.0); BG METHEMOGLOBIN 0.3 % (0.0-1.5); BG OXYHEMOGLOBIN 96.8 % (94.0-97.0); BG PCO2 38.2 mmHg (35.0-45.0); BG PH 7.428 (7.350-7.450); BG PO2 105.9 mmHg (75.0-100.0); BG SAMPLE SITE RIGHT RADIAL; BG TOTAL HEMOGLOBIN 11.4 g/dL (12.0-18.0); BG VENT MODE MASK - BIPAP
[2020-09-15] MEDS: LORAZEPAM 2MG/ML CPJ IV PRN (20:10)
[2020-09-15] MEDS ORDERED: SODIUM CHLORIDE 0.9% INJ 3ML FLUSH IVF SCH (22:00)
[2020-09-15] MEDS: ENOXAPARIN 40MG/0.4ML SYR SUBCUT SCH (22:03)
[2020-09-15 23:00] VITALS: BP 156/78
[2020-09-16] VITALS (90 sets, daily range): BP systolic 40–162; BP diastolic 19–115
[2020-09-16 05:42] LABS: BASOPHILS % 0.6 % (0.0-2.0); EOSINOPHILS % 1.6 % (0.0-5.0); HEMATOCRIT. 35.2 % (36.0-48.0); HEMOGLOBIN. 10.8 g/dL (12.0-16.0); LYMPHOCYTES % 12.7 % (20.0-50.0); MEAN CORPUSCULAR HEMOGLOBIN 21.7 pg (28.0-32.0); MEAN CORPUSCULAR VOLUME 70.8 fL (81.0-99.0); MEAN PLATELET VOLUME 9.6 fl (7.4-10.4); MONOCYTES % 9.5 % (2.0-8.0); NEUTROPHILS % 75.6 % (40.0-76.0); PLATELET 219 x1000/uL (130-400); RED BLOOD CELL COUNT 4.97 mill/uL (4.2-5.4); RED CELL DISTRIBUTION WIDTH 21.6 % (11.6-14.6)
[2020-09-16 05:51] LABS: CHLORIDE 103 mEq/L (98-107)
[2020-09-16] MEDS: NICARDIPINE 50 MG in SODIUM CHLORIDE 0.9% 250 ML IV PRN ×2 (07:19→08:51)
[2020-09-16] MEDS ORDERED: FUROSEMIDE 40MG/4ML VIAL IVP SCH (09:15)
[2020-09-16] MEDS ORDERED: AMLODIPINE 5MG TABLET PO SCH (09:30)
[2020-09-16 09:37] LABS: BG BASE EXCESS 4.4 mmol/L (-2.0-2.0); BG CARBOXYHEMOGLOBIN 0.7 % (0.5-1.5); BG DEOXYHEMOGLOBIN 1.7 % (0.0-5.0); BG FRACTION INSPIRED OXYGEN 35; BG HCO3 ACT 29.4 mmol/L (22.0-26.0); BG METHEMOGLOBIN 0.4 % (0.0-1.5); BG OXYGEN SATURATION 98.3 % (92.0-98.5); BG OXYHEMOGLOBIN 97.2 % (94.0-97.0); BG PCO2 45.7 mmHg (35.0-45.0); BG PH 7.427 (7.350-7.450); BG PO2 110.9 mmHg (75.0-100.0); BG SAMPLE SITE RIGHT BRACHIAL; BG TOTAL HEMOGLOBIN 11.9 g/dL (12.0-18.0); BG TOTAL RESPIRATORY RATE 17 b/min; BG VENT MODE MASK - BIPAP
[2020-09-16] MEDS: CLOPIDOGREL 75MG TABLET PO SCH (10:09)
[2020-09-16] MEDS: ASPIRIN 81MG TABLET PO SCH (13:25)
[2020-09-16] MEDS: FERROUS SULFATE 325MG TABLET PO SCH ×2 (13:25→17:19)
[2020-09-16] MEDS: METHYLPREDNISOLONE SOD SUCC 40 MG/ML VIAL IV SCH ×2 (14:50→23:06)
[2020-09-16] MEDS: AMLODIPINE 5MG TABLET PO SCH (17:20)
[2020-09-16] MEDS: FUROSEMIDE 40MG/4ML VIAL IVP SCH (17:20)
[2020-09-16 20:30] LABS: T4 FREE 1.19 ng/dL (0.76-1.46)
[2020-09-16] MEDS ORDERED: CARVEDILOL 12.5MG TABLET PO SCH (21:00)
[2020-09-16] MEDS: ENOXAPARIN 40MG/0.4ML SYR SUBCUT SCH (23:06)
[2020-09-16] MEDS: HYDRALAZINE HCL 10MG TABLET PO SCH (23:06)
[2020-09-17] VITALS (36 sets, daily range): BP systolic 96–160; BP diastolic 41–121
[2020-09-17 05:39] LABS: HEMOGLOBIN. 10.7 g/dL (12.0-16.0); MEAN CORPUSCULAR HEMOGLOBIN 21.8 pg (28.0-32.0); MEAN CORPUSCULAR VOLUME 71.7 fL (81.0-99.0); MEAN PLATELET VOLUME 9.5 fl (7.4-10.4); PLATELET 240 x1000/uL (130-400); RED BLOOD CELL COUNT 4.89 mill/uL (4.2-5.4); RED CELL DISTRIBUTION WIDTH 22.5 % (11.6-14.6)
[2020-09-17] MEDS: METHYLPREDNISOLONE SOD SUCC 40 MG/ML VIAL IV SCH (06:00)
[2020-09-17] MEDS: ASPIRIN 81MG TABLET PO SCH (08:02)
[2020-09-17] MEDS: HYDRALAZINE HCL 10MG TABLET PO SCH (08:04)
[2020-09-17] MEDS: AMLODIPINE 5MG TABLET PO SCH ×2 (08:05→17:04)
[2020-09-17] MEDS: FERROUS SULFATE 325MG TABLET PO SCH ×3 (08:05→17:04)
[2020-09-17] MEDS: CLOPIDOGREL 75MG TABLET PO SCH (08:05)
[2020-09-17] MEDS: FUROSEMIDE 40MG/4ML VIAL IVP SCH ×3 (08:05→17:04)
[2020-09-17 09:49] LABS: CLARITY URINE CLOUDY (CLEAR); COLOR URINE YELLOW (YELLOW); KETONES URINE TRACE (NEGATIVE); LEUKOCYTE ESTERASE URINE NEGATIVE (NEGATIVE); NITRITE URINE NEGATIVE (NEGATIVE); OCCULT BLOOD URINE NEGATIVE (NEGATIVE); PROTEIN URINE 2+ (NEGATIVE); SPECIFIC GRAVITY URINE 1.016 (1.005-1.030); UROBILINOGEN URINE 0.2 E.U./dL (0.2-1.0)
[2020-09-17 10:01] LABS: *AMPHETAMINES SCREEN URINE NEGATIVE (NEGATIVE)
[2020-09-17 10:02] LABS: *BARBITURATES SCREEN URINE NEGATIVE (NEGATIVE); *BENZODIAZEPINES SCREEN URINE NEGATIVE (NEGATIVE); *COCAINE SCREEN URINE PRESUMTIVE POSITIVE (NEGATIVE); CANNABINOID URINE SCREEN NEGATIVE (NEGATIVE); METHADONE URINE SCREEN NEGATIVE (NEGATIVE); OPIATES URINE SCREEN PRESUMTIVE POSITIVE (NEGATIVE)
[2020-09-17 10:03] LABS: PHENCYCLIDINE URINE SCREEN NEGATIVE (NEGATIVE)
[2020-09-17 14:42] LABS: PLATELET ESTIMATE NORMAL
[2020-09-17] MEDS: PREDNISONE 20MG TABLET PO SCH (17:04)
[2020-09-17] MEDS: LORAZEPAM 2MG/ML CPJ IV PRN (17:50)
[2020-09-17] MEDS: ENOXAPARIN 40MG/0.4ML SYR SUBCUT SCH (20:20)
[2020-09-17] MEDS: HYDRALAZINE HCL 25MG TABLET PO SCH (20:20)
[2020-09-18] VITALS (8 sets, daily range): BP systolic 123–159; BP diastolic 71–102
[2020-09-18 06:58] LABS: HEMATOCRIT. 33.8 % (36.0-48.0); HEMOGLOBIN. 10.2 g/dL (12.0-16.0); MEAN CORPUSCULAR HEMOGLOBIN 21.5 pg (28.0-32.0); MEAN CORPUSCULAR VOLUME 71.5 fL (81.0-99.0); MEAN PLATELET VOLUME 9.2 fl (7.4-10.4); PLATELET 254 x1000/uL (130-400); RED BLOOD CELL COUNT 4.72 mill/uL (4.2-5.4); RED CELL DISTRIBUTION WIDTH 22.6 % (11.6-14.6)
[2020-09-18] MEDS: FUROSEMIDE 40MG/4ML VIAL IVP SCH ×2 (09:00→09:04)
[2020-09-18] MEDS: ASPIRIN 81MG TABLET PO SCH (09:04)
[2020-09-18] MEDS: PREDNISONE 20MG TABLET PO SCH (09:04)
[2020-09-18] MEDS: FERROUS SULFATE 325MG TABLET PO SCH ×2 (09:06→12:44)
[2020-09-18] MEDS: CLOPIDOGREL 75MG TABLET PO SCH (09:06)
[2020-09-18] MEDS: AMLODIPINE 5MG TABLET PO SCH (09:06)
[2020-09-18] MEDS: HYDRALAZINE HCL 25MG TABLET PO SCH (09:06)
[2020-09-18] MEDS ORDERED: LOSARTAN POTASSIUM 25 MG TABLET PO SCH (10:45)
[2020-09-18 13:40] LABS: PLATELET ESTIMATE NORMAL
== END 2020-09-18 15:40 | disposition home or self-care (01) | DRG 816 ==
LOC: ER 10:35 → ENRESERV 19:37 → CVICU 23:33 → 5EST 09-17 09:35
PROVIDERS: ADMIT Internal Medicine; ATTEND Internal Medicine
PROC: 5A09457 Assistance with Respiratory Ventilation, 24-96 Consecutive Hours, Continuous Positive Airway Pressure (ICD-10-PCS; principal; 2020-09-15)
DX: T40.5X1A Poisoning by cocaine, accidental (unintentional), initial encounter (principal); J96.01 Acute respiratory failure with hypoxia; N17.0 Acute kidney failure with tubular necrosis; I50.43 Acute on chronic combined systolic (congestive) and diastolic (congestive) heart failure; E44.1 Mild protein-calorie malnutrition; I08.1 Rheumatic disorders of both mitral and tricuspid valves; I27.21 Secondary pulmonary arterial hypertension; I13.0 Hypertensive heart and chronic kidney disease with heart failure and stage 1 through stage 4 chronic kidney disease, or unspecified chronic kidney disease; I42.0 Dilated cardiomyopathy; J68.0 Bronchitis and pneumonitis due to chemicals, gases, fumes and vapors; I16.0 Hypertensive urgency; I25.5 Ischemic cardiomyopathy; D64.9 Anemia, unspecified; F14.10 Cocaine abuse, uncomplicated; F17.210 Nicotine dependence, cigarettes, uncomplicated; I25.10 Atherosclerotic heart disease of native coronary artery without angina pectoris; N18.9 Chronic kidney disease, unspecified; T38.0X5A Adverse effect of glucocorticoids and synthetic analogues, initial encounter; E66.9 Obesity, unspecified; Z20.822 Contact with and (suspected) exposure to COVID-19; Z59.0 Homelessness; Z86.16 Personal history of COVID-19; Z86.73 Personal history of transient ischemic attack (TIA), and cerebral infarction without residual deficits; Z91.19 Patient's noncompliance with other medical treatment and regimen; Z98.61 Coronary angioplasty status; Y92.89 Other specified places as the place of occurrence of the external cause; Z88.0 Allergy status to penicillin; Z79.899 Other long term (current) drug therapy; I25.2 Old myocardial infarction; Z68.26 Body mass index [BMI] 26.0-26.9, adult; D72.829 Elevated white blood cell count, unspecified; Z71.51 Drug abuse counseling and surveillance of drug abuser
CPT/HCPCS: 36415; 36600; 71045; 76770; 80048; 80053; 80305; 81003; 82140; 82375; 82550; 82805; 83735; 83880; 84439; 84443; 84480; 84484; 85025; 93005; 94640; 94660; 99291; C9803; J0360; J1200; J1650; J1940; J1956; J2060; J2270; J2405; J2920; J3370; J3490; J7050; J7512; U0003; A4315

== ENCOUNTER 2021-07-21 09:01 | Emergency (ER) | payer MEDICAID, OTHER ==
[~2021-07-21] VITALS: Ht 165.1 cm; Wt 70.0 kg
[~2021-07-21 09:01] MED LIST changes: -CARV12.545 MT; +CARV25TA47 MT
[2021-07-21 10:57] LABS: BASOPHILS % 1.2 % (0.0-2.0); EOSINOPHILS % 2.6 % (0.0-5.0); HEMATOCRIT. 37.6 % (36.0-48.0); HEMOGLOBIN. 11.9 g/dL (12.0-16.0); LYMPHOCYTES % 19.6 % (20.0-50.0); MEAN CORPUSCULAR HEMOGLOBIN 23.6 pg (28.0-32.0); MEAN CORPUSCULAR VOLUME 74.6 fL (81.0-99.0); MEAN PLATELET VOLUME 8.6 fl (7.4-10.4); MONOCYTES % 11.9 % (2.0-8.0); NEUTROPHILS % 64.7 % (40.0-76.0); PLATELET 242 x1000/uL (130-400); RED BLOOD CELL COUNT 5.04 mill/uL (4.2-5.4); RED CELL DISTRIBUTION WIDTH 22.2 % (11.6-14.6)
[2021-07-21] MEDS ORDERED: FUROSEMIDE 40MG/4ML VIAL IVP ONE (11:00)
[2021-07-21 11:04] LABS: CHLORIDE 105 mEq/L (98-107)
[2021-07-21] MEDS: ENALAPRIL 2.5MG/2ML VIAL 2ML IV ONE ×2 (11:11→11:32)
[2021-07-21] MEDS ORDERED: ENALAPRIL 1.25MG/ML VIAL 1ML IV NR (11:15)
[2021-07-21 11:20] LABS: PLATELET ESTIMATE NORMAL
[2021-07-21 12:07] VITALS: BP 153/91
== END 2021-07-21 12:51 | disposition short-term general hospital (02) ==
LOC: ER 09:17
DX: I50.9 Heart failure, unspecified (principal); B34.9 Viral infection, unspecified; Z20.822 Contact with and (suspected) exposure to COVID-19; I25.2 Old myocardial infarction; J44.9 Chronic obstructive pulmonary disease, unspecified
CPT/HCPCS: 36415; 71045; 80053; 83880; 84484; 85025; 87426; 93005; 96374; 96375; 99285; J1940; J3490

== ENCOUNTER 2021-08-10 05:01 | Emergency (ER) | payer OTHER ==
[~2021-08-10] VITALS: Ht 157.5 cm; Wt 75.0 kg
[2021-08-10 05:45] LABS: BASOPHILS % 0.5 % (0.0-2.0); EOSINOPHILS % 0.7 % (0.0-5.0); HEMATOCRIT. 37.2 % (36.0-48.0); HEMOGLOBIN. 11.7 g/dL (12.0-16.0); LYMPHOCYTES % 12.1 % (20.0-50.0); MEAN CORPUSCULAR VOLUME 76.1 fL (81.0-99.0); MONOCYTES % 6.5 % (2.0-8.0); NEUTROPHILS % 80.2 % (40.0-76.0); PLATELET 174 x1000/uL (130-400); RED BLOOD CELL COUNT 4.89 mill/uL (4.2-5.4)
[2021-08-10 05:47] LABS: CHLORIDE 111 mEq/L (98-107)
[2021-08-10] MEDS ORDERED: ASPIRIN 81MG TABLET PO ONE (06:15)
[2021-08-10] MEDS ORDERED: FUROSEMIDE 40MG/4ML VIAL IV ONE (06:15)
[2021-08-10] MEDS ORDERED: AMLODIPINE 5MG TABLET PO ONE (07:15)
[2021-08-10] MEDS ORDERED: LORAZEPAM 1MG TABLET PO ONE (07:15)
[2021-08-10 09:08] VITALS: BP 191/133
[2021-08-10 09:25] LABS: METHADONE URINE SCREEN NEGATIVE (NEGATIVE); OPIATES URINE SCREEN NEGATIVE (NEGATIVE)
[2021-08-10 09:26] LABS: *AMPHETAMINES SCREEN URINE NEGATIVE (NEGATIVE); *BARBITURATES SCREEN URINE NEGATIVE (NEGATIVE); *BENZODIAZEPINES SCREEN URINE NEGATIVE (NEGATIVE); CANNABINOID URINE SCREEN NEGATIVE (NEGATIVE); PHENCYCLIDINE URINE SCREEN NEGATIVE (NEGATIVE)
[2021-08-10 09:34] LABS: *COCAINE SCREEN URINE PRESUMTIVE POSITIVE (NEGATIVE)
== END 2021-08-10 09:10 | disposition short-term general hospital (02) ==
LOC: ER 05:01
DX: I11.0 Hypertensive heart disease with heart failure (principal); I50.9 Heart failure, unspecified; I25.2 Old myocardial infarction; Z86.73 Personal history of transient ischemic attack (TIA), and cerebral infarction without residual deficits; J44.9 Chronic obstructive pulmonary disease, unspecified; Z87.891 Personal history of nicotine dependence; I16.1 Hypertensive emergency; Z79.899 Other long term (current) drug therapy; Z88.0 Allergy status to penicillin; Z20.822 Contact with and (suspected) exposure to COVID-19
CPT/HCPCS: 36415; 71045; 80053; 80305; 83880; 84484; 85025; 87426; 93005; 96374; 99291; J1940

== ENCOUNTER 2022-02-22 08:49 | Emergency (ER) | payer OTHER ==
[~2022-02-22] VITALS: Ht 170.2 cm; Wt 113.0 kg
[2022-02-22] MEDS ORDERED: IPRATROPIUM BROMIDE (0.02%) 0.5MG/2.5ML NEB HHN STA (08:55)
[2022-02-22] MEDS ORDERED: ALBUTEROL (0.083%) 2.5MG/3ML NEB HHN STA (08:55)
[2022-02-22] MEDS ORDERED: METHYLPREDNISOLONE SOD SUCC 125 MG/2 ML VIAL IV STA (08:55)
[2022-02-22 10:13] LABS: BASOPHILS % 0.6 % (0.0-2.0); EOSINOPHILS % 3.1 % (0.0-5.0); HEMATOCRIT. 38.8 % (36.0-48.0); HEMOGLOBIN. 12.8 g/dL (12.0-16.0); LYMPHOCYTES % 20.4 % (20.0-50.0); MEAN CORPUSCULAR HEMOGLOBIN 26.8 pg (28.0-32.0); MEAN CORPUSCULAR VOLUME 81.1 fL (81.0-99.0); MEAN PLATELET VOLUME 8.5 fl (7.4-10.4); MONOCYTES % 5.4 % (2.0-8.0); NEUTROPHILS % 70.5 % (40.0-76.0); PLATELET 193 x1000/uL (130-400); RED BLOOD CELL COUNT 4.78 mill/uL (4.2-5.4); RED CELL DISTRIBUTION WIDTH 17.3 % (11.6-14.6)
[2022-02-22 10:18] LABS: CLARITY URINE CLEAR (CLEAR); COLOR URINE YELLOW (YELLOW); KETONES URINE NEGATIVE (NEGATIVE); LEUKOCYTE ESTERASE URINE 2+ (NEGATIVE); NITRITE URINE NEGATIVE (NEGATIVE); OCCULT BLOOD URINE TRACE (NEGATIVE); PROTEIN URINE 3+ (NEGATIVE); SPECIFIC GRAVITY URINE 1.015 (1.005-1.030)
[2022-02-22 10:22] LABS: CHLORIDE 109 mEq/L (98-107)
[2022-02-22 10:34] LABS: ETHANOL BLOOD < 10 mg/dL
[2022-02-22] MEDS ORDERED: CEFTRIAXONE 1 G PREMIX 50 ML IV ONE (10:45)
[2022-02-22] MEDS ORDERED: ASPIRIN 81MG TABLET PO ONE (10:45)
[2022-02-22] MEDS ORDERED: FUROSEMIDE 40MG/4ML VIAL IV ONE (10:45)
[2022-02-22 11:10] LABS: *AMPHETAMINES SCREEN URINE NEGATIVE (NEGATIVE); *BARBITURATES SCREEN URINE NEGATIVE (NEGATIVE); *BENZODIAZEPINES SCREEN URINE NEGATIVE (NEGATIVE); *COCAINE SCREEN URINE PRESUMTIVE POSITIVE (NEGATIVE); CANNABINOID URINE SCREEN NEGATIVE (NEGATIVE); METHADONE URINE SCREEN NEGATIVE (NEGATIVE); OPIATES URINE SCREEN NEGATIVE (NEGATIVE); PHENCYCLIDINE URINE SCREEN NEGATIVE (NEGATIVE)
[2022-02-22] MEDS ORDERED: LORAZEPAM 0.5MG TABLET PO ONE (14:45)
[2022-02-22] MEDS ORDERED: HYDRALAZINE 20MG/ML VIAL IV ONE (16:45)
[2022-02-22 18:32] VITALS: BP 178/139
== END 2022-02-22 19:30 | disposition short-term general hospital (02) ==
LOC: ER 08:49
DX: R06.03 Acute respiratory distress (principal); I11.0 Hypertensive heart disease with heart failure; I50.9 Heart failure, unspecified; N30.00 Acute cystitis without hematuria; J45.909 Unspecified asthma, uncomplicated; I25.2 Old myocardial infarction; Z86.73 Personal history of transient ischemic attack (TIA), and cerebral infarction without residual deficits; Z20.822 Contact with and (suspected) exposure to COVID-19
CPT/HCPCS: 36415; 71045; 80053; 80305; 80320; 81003; 83880; 84484; 85025; 87086; 87426; 93005; 94640; 94664; 96365; 96375; 99291; C9803; J0360; J0696; J1940; J2930; Z7610; G0480